=== PATIENT | male | born 1980 | race Caucasian/White ===

== ENCOUNTER 2020-08-24 11:00 | Emergency (ER) | payer OTHER ==
[2020-08-24 12:04] LABS: BASOPHIL 0.5 % (0-2); HCT 36.2 % (42.0-52.0); HGB 12.3 g/dl (13.2-18.0); LYMPHOCYTE 5.8 % (15-48); MCH 30.6 pg (25.0-31.0); MONOCYTE 6.6 % (0-12); MPV 9.4 fL (6.0-9.5); NEUTROPHIL 85.8 % (41-80); NRBC 0; PLT 226 K/uL (150-400); RBC 4.02 M/uL (4.70-6.00); RDW 12.7 % (11.5-14.0); WBC 9.8 K/uL (4.0-10.5)
[2020-08-24 12:21] LABS: ALBUMIN 3.1 g/dL (3.4-5.0); BILIRUBIN - TOTAL 0.6 mg/dL (0.2-1.0); BUN/CREAT RATIO (CALC) 6.7 RATIO; CREATININE 0.9 mg/dL (0.67-1.17); GLOBULIN (CALCULATION) 4.4 g/dL; POTASSIUM 3.7 mmol/L (3.5-5.1); TOTAL PROTEIN 7.5 g/dL (6.4-8.2)
[2020-08-24 12:33] LABS: LACTIC ACID 0.4 mmol/L (0.4-1.9)
[2020-08-24] MEDS ORDERED: CEPHALEXIN500 MG PO (13:17)
[2020-08-24] MEDS ORDERED: BACTRIM DS TAB1 EACH PO (13:17)
== END 2020-08-24 14:06 | disposition home or self-care (01) ==
LOC: FER 11:00
PROVIDERS: Emergency Medicine
DX: L03.113 Cellulitis of right upper limb (principal); E11.9 Type 2 diabetes mellitus without complications; F17.200 Nicotine dependence, unspecified, uncomplicated; Z86.14 Personal history of Methicillin resistant Staphylococcus aureus infection; Z79.84 Long term (current) use of oral hypoglycemic drugs
CPT/HCPCS: 36415; 73090; 73130; 80053; 83605; 85025; 87040; J3370; J7050